=== PATIENT | female | born 1960 | race Caucasian/White ===

== ENCOUNTER 2021-07-29 07:18 | Day surgery (SDC) | payer BC ==
[2021-07-29] VITALS (11 sets, daily range): BP systolic 85–141; BP diastolic 53–101
[2021-07-29] MEDS ORDERED: NS IV 1000 ML 1,000 ML IV STA (08:08)
[2021-07-29 08:09] LABS: BASOPHILS % (AUTO) 0 % (0-10); HEMOGLOBIN 7.3 g/dL (11.5-16.0); MEAN CORPUSCULAR VOLUME 97 fL (80-99)
[2021-07-29 08:11] LABS: ABSOLUTE RETIC # 14 10e9/uL (24-90); EOSINOPHILS % (AUTO) 1 % (0-10); HEMATOCRIT 22 % (35-52); LYMPHOCYTES # (AUTO) 0.5 10^3/uL (1.0-4.0); LYMPHOCYTES % (AUTO) 44 % (12-44); MEAN CORPUSCULAR HEMOGLOBIN 33 pg (25-34); MEAN CORPUSCULAR HGB CONC 34 g/dL (32-36); MEAN PLATELET VOLUME 9.2 fL (9.0-12.2); MONOCYTES # (AUTO) 0.3 10^3/uL (0.0-1.0); MONOCYTES % (AUTO) 22 % (0-12); NEUTROPHILS # (AUTO) 0.4 10^3/uL (1.8-7.8); NEUTROPHILS % (AUTO) 31 % (42-75); RETICULOCYTE % 0.64 % (0.50-2.40)
[2021-07-29] MEDS ORDERED: MIDAZOLAM 2 MG/2 ML (VERSED) VIAL IVP ONE (08:15)
[2021-07-29] MEDS ORDERED: LIDOCAINE 1% INJ 20 ML VIAL INJ ONE (08:15)
[2021-07-29] MEDS ORDERED: fentaNYL INJ 100 MCG/2 ML AMP IVP ONE (08:15)
[2021-07-29 08:30] LABS: INR 0.9 (0.8-1.4)
[2021-07-29 08:32] LABS: PLATELET COUNT 16 10^3/uL (130-400); WHITE BLOOD COUNT 1.2 10^3/uL (4.3-11.0)
[2021-07-29 08:33] LABS: PROTHROMBIN TIME PATIENT 12.6 SEC (12.2-14.7)
[2021-07-29 09:07] LABS: ATYPICAL LYMPHOCYTES 2 %; BAND NEUTROPHILS 4 %; EOSINOPHILS % (MANUAL) 2 %; LYMPHOCYTES % (MANUAL) 46 %; MONOCYTES % (MANUAL) 14 %; NEUTROPHILS % (MANUAL) 30 %; REACTIVE LYMPHOCYTES 2 %
[2021-07-29 09:08] LABS: ANISOCYTOSIS SLIGHT; PLATELET ESTIMATE DECREASED
[2021-07-29] MEDS ORDERED: HYDROcodone/APAP 5 MG/325 MG (LORTAB) TAB PO PRN (10:15)
--- NOTE | 2021-07-29 10:25 | Pre-Op Note & Conscious Sedat ---
Pre-Operative Progress Note H&P Reviewed The H&P was reviewed, patient examined and no changes noted. Date H&P Reviewed: July 29, 2021 Time H&P Reviewed: 08:00 Pre-Op Diagnosis: pancytopenia Conscious Sedation Pre-Proced Time 08:00 ASA Score 2 For ASA 3 and 4: Consider anesthesia and medical clearance. Also, for patients with a history of failed moderate sedation consider anesthesia. Airway Lungs Heart ASA score ASA 1: a normal healthy patient ASA 2: a patient with a mild systemic disease (mid diabetes, controlled hypertension, obesity ASA 3: a patient with a severe systemic disease that limits activity (angina, COPD, prior Myocardial infarction) ASA 4: a patient with an incapacitating disease that is a constant threat to life (CHF, renal failure) ASA 5: a moribund patient not expected to survive 24 hrs. (ruptured aneurysm) ASA 6: a declared brain- patient whose organs are being harvested. For emergent operations, add the letter E after the classification Mallampati Classification Grade 2 Sedation Plan Analgesia, Amnesia, Plan communicated to team members, Discussed options with patient/fam, Discussed risks with patient/fam The patient is an appropriate candidate to undergo the planned procedure, sedation, and anesthesia. The patient immediately re-assessed prior to indication. ROBBIN RIVAS MD July 29, 2021 10:25
--- NOTE | 2021-07-29 11:41 | Diagnostic Imaging Report ---
Indication: Pancytopenia. Patient presents for CT-guided bone marrow aspiration and core biopsy. Patient brought to the CT suite placed on table in the prone position. Axial imaging through the pelvis was performed to evaluate appropriate entry site. The procedure was performed utilizing conscious sedation with radiology nursing and constant patient monitoring. Patient was given a total of 25 mcg of fentanyl intravenously. Total procedure time was 5 minutes. Bony marrow needle was advanced and placed with its tip along the posterior cortex of right iliac bone. The needle was advanced to the cortex utilized bone marrow drill. 2 bone marrow aspirates were then obtained. Next, the drill was utilized to obtain a bone marrow core biopsy. Needle was removed and hemostasis was obtained. Patient tolerated procedure and left the department in stable condition. IMPRESSION: Successful CT guided bone marrow aspiration and core biopsy, utilizing conscious sedation. Pathology results are currently pending. Dictated by: Dictated on workstation # [id number]
== END 2021-07-29 11:30 ==
LOC: RAD 07:18 → SDC 09:33 → RAD 11:30
PROVIDERS: ATTEND Internal Medicine Hematology & Oncology
DX: D61.818 Other pancytopenia (principal)
CPT/HCPCS: 36415; 38222; 77012; 85007; 85027; 85045; 85055; 85610; 85730; 88185; 88237; 88264; 88305; 88311; 88313